=== PATIENT | female | born 1950 | race Caucasian/White ===

== ENCOUNTER 2022-04-13 11:29 | Inpatient (IN) | payer MEDICARE, SELFPAY ==
--- NOTE | ~2022-04-13 | XR_ITS ---
EXAMINATION: XR elbow LT min 3V DATE: 04/13/2022 13:36 INDICATION: Left elbow injury. TECHNIQUE: 4 views of left elbow were obtained. COMPARISON: None. FINDINGS: There is a fracture of lateral humeral condyle posteriorly. There is mild elbow joint osteoarthritis. There is an elbow joint effusion. IMPRESSION: 1. Nondisplaced fracture of lateral humeral condyle posteriorly. 2. Mild elbow joint osteoarthritis. 3. Elbow joint effusion. Reviewed, dictated and finalized at location A.
--- NOTE | ~2022-04-13 | CT_ITS ---
EXAMINATION: CT BRAIN W/O DATE: 04/14/2022 12:10 INDICATION: Status post fall. Trauma to the head. TECHNIQUE: Computed tomography (CT) of the head was performed without intravenous contrast. The dose- length product was 605.33 mGy-cm. Automated exposure control and iterative reconstruction technique w ere employed. COMPARISON: No prior studies for comparison. FINDINGS: Normal brain parenchymal volume for age. Normal borrego-white differentiation. No acute intrac ranial hemorrhage, infarction, mass or mass effect. No ventriculomegaly or midline shift. Midline sagittal images demonstrate a normal corpus callosum, c raniovertebral junction and sella turcica. Basilar cisterns are patent. Paranasal sinuses and mastoids are pneumatized. No depressed skull fractures. IMPRESSION: 1. No acute intracranial abnormality. Reviewed, dictated and finalized at location A.
--- NOTE | ~2022-04-13 | XR_ITS ---
XR hip LT 2V w AP pelvis 04/13/2022 13:37 Indication: Status post fall. Hip pain. Procedure: 4 views left hip. Comparison: No prior studies for comparison. Findings: There is a displaced left femoral neck fracture. Mild osteoarthritis of the hip. No other f ractures. No soft tissue abnormality. Impression: 1: Displaced left femoral neck fracture. Reviewed, dictated and finalized at location B. Impression: 1: Displaced left femoral neck fracture.
--- NOTE | ~2022-04-13 | XR_ITS ---
EXAMINATION: XR chest 1V portable 04/13/2022 13:55 INDICATION: Left hip fracture. PROCEDURE: AP portable chest COMPARISON: No prior studies for comparison. FINDINGS: The lungs are clear. The cardiomediastinal silhouette is within normal limits. There are no pleural effusions. There is no pneumothorax suspected. Borderline heart size. IMPRESSION: 1: NO ACUTE CARDIOPULMONARY DISEASE. Reviewed, dictated and finalized at location B.
--- NOTE | ~2022-04-13 | XR_ITS ---
EXAM: XR hip LT 1V DATE: 04/15/2022 14:56 HISTORY: LEFT TOTAL HIP POST OP . COMPARISON: 04/13/2022. FINDINGS: Interval left total hip arthroplasty, in good position. Gas present within the joint space and surrounding soft tissues. No unexpected radiopaque foreign body. IMPRESSION: Expected intraoperative postsurgical changes, with no radiographic evidence of procedure or hardware related complication. Reviewed, dictated and finalized at location K.
[2022-04-13 11:24] VITALS: BP 149/90; PULSE 99; RESP 18; TEMP 36.7; O2SAT 97
[2022-04-13] MEDS: SODIUM CHLORIDE 0.9% IV 1,000 ML 999 ML IV CONT (12:34)
[2022-04-13] MEDS: MORPHINE SULFATE (*CRX) 4 MG/ML INJ IV PUSH (12:34)
[2022-04-13 12:35] VITALS: PULSE 99; RESP 18; O2SAT 99
[2022-04-13 13:20] LABS: Basophils Percent Auto 0.4 % (0.2-1.2); Eosinophils Percent Auto 0.6 % (0-4.4); Hematocrit 44.1 % (37.0-47.0); Hemoglobin 14.6 g/dL (12.0-15.0); Immature Granulocyte Absolute 0.04 K/mm3 (0.00-0.031); Immature Granulocyte Percent A 0.6 % (0-0.5); Lymphocytes Absolute Auto 0.79 K/mm3 (0.9-3.2); Lymphocytes Percent Auto 11.7 % (18.3-44.2); Mean Corpuscular HGB Conc 33.1 g/dl (32-36); Mean Corpuscular Hemoglobin 30.6 pg (26-34); Mean Corpuscular Volume 92.5 fl (80-100); Mean Platelet Volume 10.3 fl (7.4-10.4); Monocytes Absolute Auto 0.6 K/mm3 (0.1-0.6); Monocytes Percent Auto 9.3 % (2.6-8.5); Neutrophils Absolute Auto 5.2 K/mm3 (1.3-6.7); Neutrophils Percent Auto 77.4 % (45.5-73.1); Platelet Count Result 231 k/mm3 (150-375); Red Blood Count 4.77 M/mm3 (4.2-5.4); Red Cell Distribution Width 13.3 % (11.5-14.5); White Blood Count 6.8 K/mm3 (4.5-10.0)
--- NOTE | 2022-04-13 13:20 | PC.NURSE ---
Pt to XRAY via stretcher at this time.
--- NOTE | 2022-04-13 13:21 | ED.FALL ---
HPI - Fall General Chief Complaint: Fall Stated Complaint: fall, hip injury Time Seen by Provider: 04/13/22 12:01 History of Present Illness HPI Narrative: Patient is a 72-year-old female who presents ER status post fall. Patient was coming down steps at [employer] when she turned and then fell onto her left side. She landed on her hip had sudden onset pain. Unable to stand up or walk. She did strike her head when she fell but she did not lose consciousness. She is on no blood thinners. She also struck her left elbow when she fell. Cannot perform range of motion with the hip but can with her arm. No numbness or tingling. She received pain medication by EMS which improved her discomfort. Pain only worsens if she attempts to move her leg. Related Data Home Medications Medication Instructions Recorded Confirmed atorvastatin 10 mg tablet 10 mg PO HS 04/13/22 04/13/22 bupropion HCl 150 mg 24 hr tablet, 150 mg PO DAILY 04/13/22 04/13/22 extended release calcium carbonate 600 mg calcium 600 mg PO BID 04/13/22 04/13/22 (1,500 mg) tablet dapagliflozin 5 mg tablet (Farxiga) 5 mg PO DAILY 04/13/22 04/13/22 dulaglutide 0.75 mg/0.5 mL 0.75 mg subcut WEEKLY 04/13/22 04/13/22 subcutaneous pen injector ([facility]) duloxetine 30 mg capsule,delayed 30 mg PO DAILY 04/13/22 04/13/22 release meloxicam 7.5 mg tablet 7.5 mg BID 04/13/22 04/13/22 metformin 500 mg tablet 500 mg BID 04/13/22 04/13/22 multivit with 8 tablet PO DAILY 04/13/22 04/13/22 emaxbrlw-ahgg-GF-lutein 8 mg iron-400 mcg-300 mcg tablet (Centrum Silver Women) cbjvildv-nvt-sykhn9 250 mg-dha 90 250 cap PO DAILY 04/13/22 04/13/22 mg-epa 160 bn-ttdz-kvdp-zeax capsule (Ocuvite Adult 50 Plus) trazodone 150 mg tablet 150 mg HS 04/13/22 04/13/22 Allergies Allergy/AdvReac Type Severity Reaction Status Date / Time lactose Allergy Diarrhea Verified 04/13/22 18:49 Review of Systems Review of Systems: All systems reviewed & are unremarkable except as noted in HPI and below Constitutional: Constitutional: Denies chills and Denies fever(s) Cardiovascular: Cardiovascular: Denies chest pain, Denies rapid heart rate and Denies radiating jaw, neck or arm pain Respiratory: Respiratory: Denies cough and Denies dyspnea Gastrointestinal: Gastrointestinal: Denies abdominal pain, Denies diarrhea, Denies nausea and Denies vomiting Musculoskeletal: Musculoskeletal: Denies back pain, Reports arthralgias and Denies joint swelling Neurologic: Denies syncope, Denies headache(s), Denies focal weakness and Denies numbness PMFSH Past Medical History Medical History (Updated 04/13/22 @ 21:48 by Сергей Chu MD) Diabetes Hyperlipidemia Surgical History Surgical History (Updated 04/13/22 @ 13:24 by Сергей Chu MD) History of cholecystectomy History of hysterectomy Social History Social History (Updated 04/13/22 @ 13:24 by Сергей Chu MD) Smoking status: Never smoker Alcohol intake: never Substance use: never Has the Lack of Transportation Kept You From Medical Appointments or From Getting Medications?: No Within the Past 12 Months, Were You Worried Whether Your Food Would Run Out Before You Got Money to Buy More?: Never True What is Your Housing Situation Today?: I Have Housing Are You Worried That in the Next 2 Months, You May Not Have Your Own Housing to Live In?: No Do You Have Trouble Paying Your Heating Or Electricity Bill?: No Do You Have Trouble Paying For Medicines?: No Are You Currently Unemployed and Looking for Work?: No Highest Level of Education Completed: Master's Degree or Higher Do You Have Trouble With Childcare or the Care of a Family Member?: No Spiritual care concerns: No Exam Narrative: GENERAL: Well-appearing, well-nourished, and in no acute distress. HEAD: Normocephalic, atraumatic. EYES: PERRL and EOMI. ENT: Mucous membranes moist. CHEST: Clear to auscultation. No respiratory distres
[2022-04-13 13:26] LABS: Appearance Urine Clear (Clear); Bilirubin Urine Negative (Negative); Blood Urine Negative (Negative); Color Urine Yellow (Yellow); Glucose Urine UA 3+ mg/dL (Negative); Ketones Urine Negative (Negative); Leukocyte Esterase Ur Negative LEU/UL (Negative); Nitrate Urine Negative (Negative); Protein Urine Negative (Negative); Specific Grav Ur 1.015 (1.001-1.035); Urobilinogen Urine 0.2 mg/dL (<2.0)
[2022-04-13 13:29] LABS: Mucus Urine Rare /lpf; RBC Urine 0-2 /hpf (0-2); Squamous Epithelial Cell Urine Rare /hpf (Few); WBC Urine 0-3 /hpf
[2022-04-13 13:30] LABS: Anion Gap 11 mmol/L (8-16); Blood Urea Nitrogen 16 mg/dL (7-17); Calcium 9.4 mg/dL (8.4-10.2); Carbon Dioxide 25 mmol/L (22-30); Chloride 105 mmol/L (98-107); Estimated CRCL calculation 51 ml/min; Estimated Glomerular Filt Rate > 60; Glucose 137 mg/dL (65-110); Potassium 4.3 mmol/L (3.4-5.0); Sodium 141 mmol/L (137-145)
[2022-04-13 13:31] LABS: INR 1.1; Partial Thromboplastin Time 30.8 SECONDS (22.3-36.8); Prothrombin Time 13.7 Seconds (11.1-14.7)
[2022-04-13 13:46] LABS: Add Urine Microscopic? YES
[2022-04-13 14:31] VITALS: BP 147/83; PULSE 77; RESP 15; O2SAT 100
--- NOTE | 2022-04-13 17:06 | PC.NURSE ---
1500 tried contacting via cell - directly to voice mail [phone] directly to voice mail [phone] directly to voice mail [phone] home number not in service [phone] contacted [employer] exchange
[2022-04-13 17:41] VITALS: BP 123/70; PULSE 77; O2SAT 98
[2022-04-13 18:12] LABS: SARS-CoV-2 RNA PCR Negative
[2022-04-13 19:52] VITALS: BMI 29.4
--- NOTE | 2022-04-13 19:52 | PC.NURSE ---
This patient, Deisy Roe, was admitted to [facility] Surg Room 303-01. Patient/family oriented to hospital policies and general routines including ID bracelet, bed and alarms, visiting hours, pain management, procedures, bathroom and other care routines, personal items, smoking policy, room service/diet, and visiting hours. Information on how to activate the Rapid Response Team has been discussed. Patient/Family are encouraged to report perceived risks to care and to ask questions if they do not understand what they are told or what they should do.
[2022-04-13 21:54] VITALS: BP 121/65; PULSE 87; RESP 14; TEMP 37.1; O2SAT 97
--- NOTE | 2022-04-13 23:32 | PM.IMHP ---
H&P: HPI History of Present Illness Date/Time: 04/13/22 23:32 Chief Complaint: Fall Narrative: this is a 72-year-old female patient who was walking down the steps at [employer]. She had gotten to the last step and somebody called her name she turned to look who called her name and then she missed the last step and fell. She landed on her hip and had sudden onset of pain. She was unable to stand up or walk. She stated she did strike her head but did not lose consciousness. She is not on any anticoagulants. She was in severe pain when the EMS came to the scene. They did medicate her and that seemed to relieve some of her discomfort. Her COVID test is negative. Chest x-ray was read as no acute cardiopulmonary disease . Hip and pelvis x-ray shows displaced left femoral neck fracture. Elbow x-ray shows nondisplaced fracture of lateral humeral condyle posteriorly. Mild elbow joint osteoarthritis. Elbow joint effusion. The left arm was placed in a sling. Ortho has been consulted. The patient was given morphine and IV fluids in the emergency room. The patient initially was being admitted for observation and then changed to inpatient admission on the date of service of 04/13/2022. Review of Systems Review of Systems: See HPI All systems reviewed & are unremarkable except as noted in HPI and below Constitutional: Constitutional: Reports as per HPI and Reports no additional constitutional complaints Eyes: Eyes: Reports as per HPI and Reports no additional eye complaints ENT: Reports system reviewed and no additional complaints, except as documented and Reports Normal hearing present Cardiovascular: Cardiovascular: Reports no additional cardiovascular complaints Respiratory: Respiratory: Reports no additional respiratory complaints and Reports no additional respiratory complaints Gastrointestinal: Gastrointestinal: Reports as per HPI and Reports no additional gastrointestinal complaints Musculoskeletal: Musculoskeletal: Reports no additional musculoskeletal complaints Integumentary/Breasts: Skin/Breast: Reports system reviewed and no additional complaints, except as docu and Reports as per HPI Neurologic: Reports system reviewed and no additional complaints, except as documented, Reports as per HPI and Reports Normal hearing present Psychiatric: Psychiatric: Reports no additional psychiatric complaints and Reports as per HPI Endocrine: Endocrine: Reports no additional endocrine complaints Hematologic/Lymphatic: Hematologic/Lymphatic: Reports no additional hematologic/lymphatic complaints Allergic/Immunologic: Allergic/Immunologic: Reports no additional allergic/immunologic complaints [facility] Past Medical History Medical History (Updated 04/13/22 @ 23:39 by Omayra Kruse NP) Cataract Depression with anxiety Diabetes Fatty liver Hyperlipidemia Irritable bowel Surgical History Surgical History (Updated 04/13/22 @ 23:39 by Omayra Kruse NP) History of arthroscopic surgery of shoulder History of cholecystectomy History of hysterectomy S/P ORIF (open reduction internal fixation) fracture right wrist S/P rotator cuff repair Family History Family History (Updated 04/13/22 @ 23:43 by Omayra Kruse NP) Mother Dementia Hypertension Hyperlipidemia Father Lung cancer Sibling Anoxic brain damage Social History Social History (Updated 04/13/22 @ 23:44 by Omayra Kruse NP) Social History: 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 She does not use any alcohol marijuana or illicit drugs. The patient is . Her is a durable power mergers and acquisitions attorney for healthcare. Code status full code Smoking status: Never smoker Alcohol intake: never Substance use: never Has the Lack of Transportation Kept You From Medical Appointments or From Getting Medications?: No Within the Past 12 Months, Were You Worried Whether Your Food Would Run Out Before
[2022-04-14 06:00] VITALS: BP 118/66; PULSE 87; RESP 16; TEMP 36.7; O2SAT 94
[2022-04-14 06:41] LABS: Basophils Percent Auto 0.3 % (0.2-1.2); Eosinophils Absolute Auto 0.2 K/mm3 (0-0.3); Eosinophils Percent Auto 3.4 % (0-4.4); Hematocrit 40.7 % (37.0-47.0); Hemoglobin 13.8 g/dL (12.0-15.0); Immature Granulocyte Absolute 0.05 K/mm3 (0.00-0.031); Immature Granulocyte Percent A 0.7 % (0-0.5); Lymphocytes Absolute Auto 1.07 K/mm3 (0.9-3.2); Lymphocytes Percent Auto 15.3 % (18.3-44.2); Mean Corpuscular HGB Conc 33.9 g/dl (32-36); Mean Corpuscular Hemoglobin 29.9 pg (26-34); Mean Corpuscular Volume 88.1 fl (80-100); Mean Platelet Volume 10.2 fl (7.4-10.4); Monocytes Absolute Auto 0.8 K/mm3 (0.1-0.6); Monocytes Percent Auto 11.3 % (2.6-8.5); Neutrophils Absolute Auto 4.8 K/mm3 (1.3-6.7); Platelet Count Result 209 k/mm3 (150-375); Red Blood Count 4.62 M/mm3 (4.2-5.4); Red Cell Distribution Width 13.4 % (11.5-14.5)
[2022-04-14 07:01] LABS: Alanine Aminotransferase 35 U/L (6-35); Albumin Level 4.2 g/dL (3.5-5.1); Alkaline Phosphatase 100 U/L (38-126); Anion Gap 12 mmol/L (8-16); Aspartate Amino Transferase 34 U/L (14-36); Bilirubin,Total 1.7 mg/dL (0.2-1.3); Blood Urea Nitrogen 13 mg/dL (7-17); Calcium 8.6 mg/dL (8.4-10.2); Carbon Dioxide 24 mmol/L (22-30); Chloride 102 mmol/L (98-107); Estimated CRCL calculation 58 ml/min; Estimated Glomerular Filt Rate > 60; Glucose 117 mg/dL (65-110); Magnesium 2.1 mg/dL (1.6-2.3); Potassium 3.8 mmol/L (3.4-5.0); Sodium 138 mmol/L (137-145)
[2022-04-14 07:46] LABS: Glucose Point of Care 109 mg/dl (65-105)
[2022-04-14 08:00] VITALS: PULSE 87; RESP 16; O2SAT 94
[2022-04-14] MEDS: SODIUM CHLORIDE 0.9% IV 1,000 ML 75 ML IV CONT (08:57)
[2022-04-14] MEDS: MORPHINE SULFATE (*CRX) 4 MG/ML INJ IV PUSH (08:57)
[2022-04-14 09:19] LABS: Hemoglobin A1C 6.4 % (<5.7)
[2022-04-14] MEDS: DULoxetine HCL 30 MG CAPSULE.DR PO (09:20)
[2022-04-14] MEDS: buPROPion HCL XL (24 HR) 150 MG TABCR PO (09:20)
[2022-04-14 11:26] LABS: Glucose Point of Care 109 mg/dl (65-105)
--- NOTE | 2022-04-14 12:29 | PM.IMPN ---
Progress Note: A&P Assessment and Plan (1) Fall: Code(s): W19.XXXA - Unspecified fall, initial encounter Status: Acute Assessment and Plan: Mechanical fall down stairs on 04/13. Someone called the patient's name and she turned around and missed a step. She did hit her head but did not lose consciousness. No prolonged down time Head CT showed no acute findings Fall precautions in place (2) Femoral neck fracture: Qualifiers: Encounter type: initial encounter Laterality: left Code(s): S72.009A - Fracture of unspecified part of neck of unspecified femur, initial encounter for closed fracture Status: Acute Assessment and Plan: Secondary to fall Hip and pelvis x-ray showed displaced left femoral neck fracture Appreciate orthopedic surgery consultation No surgical intervention planned today, will start diabetic diet Supportive care. Analgesics available as needed Will need PT/OT postoperatively (3) Elbow fracture: Qualifiers: Encounter type: initial encounter Laterality: left Code(s): S42.409A - Unspecified fracture of lower end of unspecified humerus, initial encounter for closed fracture Status: Acute Assessment and Plan: Secondary to fall Elbow x-ray showed nondisplaced fracture of left lateral humeral condyle posteriorly Sling placed in ED. Continue Appreciate orthopedic surgery evaluation Analgesics and supportive care (4) Diabetes: Code(s): E11.9 - Type 2 diabetes mellitus without complications Status: Acute Assessment and Plan: A1c is 6.4. Blood sugars have been well controlled today Continue Accu-Cheks, sliding scale insulin, and hypoglycemic protocol Home metformin on hold Continue jardiance (5) Hyperlipidemia: Code(s): E78.5 - Hyperlipidemia, unspecified Status: Acute Assessment and Plan: LFTs stable. Continue atorvastatin Subjective Date/time seen: 04/14/22 12:29 Interval history: Date of service: 04/14/2022 Deisy Roe is a 72 year old female with a history of type 2 diabetes mellitus, hyperlipidemia, depression, anxiety who is seen in follow up for left hip and elbow fracture following a mechanical fall. She is fairly comfortable at this time. This morning her pain was 7-8/10 but after receiving pain medications, she now has no pain. She is comfortable if she is lying still. Any movement causes pain. She has been NPO today and is not had anything to eat or drink. She denies nausea or vomiting. Denies shortness of breath, cough, chest pain, palpitations. States her last bowel movement was 2 days ago. No issues with her Mooney catheter. Review of Systems Review of Systems: All systems reviewed & are unremarkable except as noted in HPI and below Exam Narrative: General: Well-nourished, well-appearing 72-year-old female, supine in bed, comfortable, NARD Neuro: awake, alert and oriented x4, speech clear, no focal neuro deficits noted HEENMT: normocephalic, atraumatic, EOMI, sclerae anicteric Respiratory: clear to auscultation bilaterally, nonlabored breathing Cardio: regular rate, regular rhythm with S1-S2 Abdomen: nondistended, normoactive bowel sounds, soft, nontender to palpation Extremities: Left arm in sling, able to wiggle fingers and make a fist, brisk capillary refill. Left leg is shortened and externally rotated, left hip is tender to palpation, BLE without edema, erythema, or tenderness to palpation, DP pulses 2+ bilaterally, able to wiggle toes bilaterally Skin: Abrasions on left knuckles, no rashes or lesions, warm and dry Psych: appropriate mood and affect, judgment and insight intact Objective Data Vital Signs Vital Signs: Vital Signs - 24 hr 04/13/22 12:35 04/13/22 14:31 04/13/22 17:41 Temperature Pulse Rate 99 77 77 Respiratory Rate 18 15 Blood Pressure 147/83 H 123/70 Pulse Oximetry 99 100 98 Oxygen Del
[2022-04-14 14:00] VITALS: BP 130/71; PULSE 96; RESP 16; TEMP 35.9; O2SAT 92
[2022-04-14] MEDS: MORPHINE SULFATE (*CRX) 2 MG/ML INJ IV PUSH ×2 (14:41→20:38)
[2022-04-14 16:00] VITALS: BP 130/71; PULSE 100; RESP 16; TEMP 36.4; O2SAT 93
--- NOTE | 2022-04-14 16:02 | PM.CNOR ---
Assessment and Plan Assessment and plan (1) Femoral neck fracture: Qualifiers: Encounter type: initial encounter Laterality: left Code(s): S72.009A - Fracture of unspecified part of neck of unspecified femur, initial encounter for closed fracture Status: Acute Assessment and Plan: LUDIN IS HERE FOR EVALUATION OF HER DISPLACED LEFT FEMORAL NECK FRACTURE PER XRAY EVALUATION AND LEFT ELBOW LATERAL CONDYLE FRACTURE WITH MINIMAL DISPLACEMENT PER XRAY EVALUATION. SHE WILL NEED LEFT TOTAL HIP ARTHROPLASTY DUE TO HER AGE AND ACTIVITY LEVEL. WE DISCUSSED ALTERNATIVES TO TOTAL HIP REPLACE WITH A BÁRBARA ARTHROPLASTY. I THINK THIS WILL HAVE AN EARLY FAILURE RATE DUE TO HER AGE AND ACTIVITY LEVEL. FAR HER ELBOW IS CONCERNED, WE MAY BE ABLE TO TREAT HER NONOPERATIVELY DUE TO THE MINIMAL DISPLACEMENT. SHE WILL REQUIRE A PLATFORM WALKER AFTER HER HIP SURGERY. XRAYS WERE REVIEWED WITH THE PATIENT. HISTORY, EXAM AND RADIOGRAPHS REVIEWED WITH THE PATIENT. REFERRING PHYSICIAN RECORDS AND IMAGES REVIEWED. CONDITION, NATURE, ETIOLOGY AND COURSE OF NATURAL HISTORY REVIEWED. CONSERVATIVE AND OPERATIVE TREATMENT OPTIONS REVIEWED WELL THE RISKS AND BENEFITS OF EACH. DISCUSSED NONOPERATIVE AND OPERATIVE TREATMENT OPTIONS WITH THE PATIENT. THE PATIENT'S QUESTIONS WERE ANSWERED. THE PATIENT DESIRES OPERATIVE TREATMENT. DISCUSSED ____LEFT TOTAL HIP REPLACEMENT . RISKS OF SURGERY INCLUDING BUT NOT LIMITED TO NEUROVASCULAR DAMAGE, WOUND COMPLICATIONS, BLOOD CLOT, PULMONARY EMBOLUS, STROKE, LA, ANESTHETIC RISKS UP TO AND INCLUDING WERE REVIEWED. CONTINUED PAIN AND POSSIBLE DYSFUNCTION WERE EXPLAINED. NO GUARANTEES WERE OFFERED. THE PATIENT UNDERSTANDS AND WISHES TO PROCEED. (2) Elbow fracture: Qualifiers: Encounter type: initial encounter Laterality: left Code(s): S42.409A - Unspecified fracture of lower end of unspecified humerus, initial encounter for closed fracture Status: Acute History of Present Illness HPI Consult date: 04/14/22 Chief complaint: Femoral Neck Fracture/Elbow Fracture Narrative: LUDIN FELL ON TO HER LEFT SIDE AND HAS SUSTAINED A DISPLACED LEFT FEMORAL NECKED FRACTURE AND NON DISPLACED LEFT LATERAL HUMERAL CONDYLE FRACTURE. SHE DENIES ANY BACK OR ANY OTHER EXTREMITY PAIN. SHE DENIES ANY LOC OR SOB. SHE DENIES ANY NUMBNESS OR TINGLING IN ANY EXTREMITY. SHE HAS PAIN AND SWELLING IN THE HIP. SHE HAS MILD TO MODERATE PAIN IN THE LEFT ELBOW AND IS ABLE TO COMFRTABLYFLEXT AND EXTEND THE ELBOW WITH SOME DISCOMFORT. 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 She does not use any alcohol marijuana or illicit drugs. The patient is . Her is a durable power high risk ob for healthcare. Code status full code Smoking status: Never smoker Alcohol intake: never Substance use: never Has the Lack of Transportation Kept You From Medical Appointments or From Getting Medications?: No Within the Past 12 Months, Were You Worried Whether Your Food Would Run Out Before You Got Money to Buy More?: Never True What is Your Housing Situation Today?: I Have Housing Are You Worrie
[2022-04-14 16:46] LABS: Glucose Point of Care 120 mg/dl (65-105)
[2022-04-14] MEDS: CALCIUM CARBONATE (OSCAL) 500 MG TABLET PO (17:50)
--- NOTE | 2022-04-14 19:04 | WPDANESEPP ---
Anes - Eval Pre Procedure Procedure: Left AMAYA Date/Time: 04/14/22 19:04 Surgeon: Cristi Preop Diagnosis: Left femoral neck fracture Pre Op Diagnosis: Femoral Neck Fracture/Elbow Fracture Patient Data Age: 72 Gender: F Height: 1.68 m Weight: 82.7 kg Last Vital Signs Temp 97.5 F L 04/14/22 16:00 Pulse 100 04/14/22 16:00 Resp 16 04/14/22 16:00 BP 130/71 04/14/22 16:00 Pulse Ox 93 04/14/22 16:00 O2 Del Method Room Air 04/14/22 08:00 Allergies Allergy/AdvReac Type Severity Reaction Status Date / Time lactose Allergy Diarrhea Verified 04/13/22 18:49 Home Medications Medication Instructions Recorded Confirmed Type atorvastatin 10 mg tablet 10 mg PO HS 04/13/22 04/13/22 History bupropion HCl 150 mg 24 hr tablet, 150 mg PO DAILY 04/13/22 04/13/22 History extended release calcium carbonate 600 mg calcium 600 mg PO BID 04/13/22 04/13/22 History (1,500 mg) tablet dapagliflozin 5 mg tablet (Farxiga) 5 mg PO DAILY 04/13/22 04/13/22 History dulaglutide 0.75 mg/0.5 mL 0.75 mg subcut WEEKLY 04/13/22 04/13/22 History subcutaneous pen injector ([facility]) duloxetine 30 mg capsule,delayed 30 mg PO DAILY 04/13/22 04/13/22 History release meloxicam 7.5 mg tablet 7.5 mg BID 04/13/22 04/13/22 History metformin 500 mg tablet 500 mg BID 04/13/22 04/13/22 History multivit with 8 tablet PO DAILY 04/13/22 04/13/22 History zcgfymsq-hxys-AZ-lutein 8 mg iron-400 mcg-300 mcg tablet (Centrum Silver Women) ggyytuug-pvc-glgec0 250 mg-dha 90 250 cap PO DAILY 04/13/22 04/13/22 History mg-epa 160 lr-tkzn-eftj-zeax capsule (Ocuvite Adult 50 Plus) trazodone 150 mg tablet 150 mg HS 04/13/22 04/13/22 History Laboratory Tests 04/14/22 04/14/22 04/14/22 06:20 06:20 06:20 WBC 7.0 K/mm3 K/mm3 (4.5-10.0) RBC 4.62 M/mm3 M/mm3 (4.2-5.4) Hgb 13.8 g/dL g/dL (12.0-15.0) Hct 40.7 % % (37.0-47.0) MCV 88.1 fl fl (80-100) MCH 29.9 pg pg (26-34) MCHC 33.9 g/dl g/dl (32-36) RDW 13.4 % % (11.5-14.5) Plt Count 209 k/mm3 k/mm3 (150-375) MPV 10.2 fl fl (7.4-10.4) Immature Gran % (Auto) 0.7 % H % (0-0.5) Neut % (Auto) 69.0 % % (45.5-73.1) Lymph % (Auto) 15.3 % L % (18.3-44.2) [place] % (Auto) 11.3 % H % (2.6-8.5) Eos % (Auto) 3.4 % % (0-4.4) Baso % (Auto) 0.3 % % (0.2-1.2) Lymph # (Auto) 1.07 K/mm3 K/mm3 (0.9-3.2) [place] # (Auto) 0.8 K/mm3 H K/mm3 (0.1-0.6) Eos # (Auto) 0.2 K/mm3 K/mm3 (0-0.3) Baso # (Auto) 0.0 K/mm3 K/mm3 (0.0-0.1) Abs Immat Gran (auto) 0.05 K/mm3 H K/mm3 (0.00-0.031) Absolute Neuts (auto) 4.8 K/mm3 K/mm3 (1.3-6.7) Absolute Nucleated RBC 0.0 K/mm3 K/mm3 (0.0-0.012) Nucleated RBC % 0.0 % % (0.0-0.2) Sodium 138 mmol/L mmol/L (137-145) Potassium 3.8 mmol/L mmol/L (3.4-5.0) Chloride 102 mmol/L mmol/L (98-107) Carbon Dioxide 24 mmol/L mmol/L (22-30) Anion Gap 12 mmol/L mmol/L (8-16) BUN 13 mg/dL mg/dL (7-17) Creatinine 0.80 mg/dL mg/dL (0.7-1.0) Estim Creat Clear Calc 58 ml/min ml/min Estimated GFR > 60 (59 - ) Glucose 117 mg/dL H mg/dL (65-110) POC Capillary Glucose Hemoglobin A1c 6.4 % H % (<5.7) Lactic Acid Calcium 8.6 mg/dL mg/dL (8.4-10.2) Magnesium 2.1 mg/dL mg/dL (1.6-2.3) Total Bilirubin 1.7 mg/dL H mg/dL (0.2-1.3) AST 34 U/L U/L (14-36) ALT 35 U/L U/L (6-35) Alkaline Phosphatase 100 U/L U/L (38-126) Total Protein 7.0 g/dL g/dL (6.3-8.2) Albumin 4.2 g/dL g/dL (3.5-5.1) TSH (Reflex) Blood Type Antibody Screen 03/18
[2022-04-14 20:00] VITALS: BP 150/84; PULSE 88; RESP 18; TEMP 36.7; O2SAT 97
[2022-04-14] MEDS: ATORVASTATIN 10 MG TABLET PO (21:13)
[2022-04-14] MEDS: traZODone HCL 50 MG TABLET 150 MG BY MOUTH (21:13)
[2022-04-14 22:43] LABS: Glucose Point of Care 132 mg/dl (65-105)
[2022-04-15] VITALS (14 sets, daily range): BP systolic 88–142; BP diastolic 54–83; PULSE 93–107; RESP 12–20; TEMP 35.8–36.6; O2SAT 94–99
[2022-04-15 06:35] LABS: Basophils Percent Auto 0.3 % (0.2-1.2); Eosinophils Absolute Auto 0.1 K/mm3 (0-0.3); Eosinophils Percent Auto 1.1 % (0-4.4); Hematocrit 44.5 % (37.0-47.0); Hemoglobin 14.7 g/dL (12.0-15.0); Immature Granulocyte Absolute 0.04 K/mm3 (0.00-0.031); Immature Granulocyte Percent A 0.5 % (0-0.5); Lymphocytes Absolute Auto 0.83 K/mm3 (0.9-3.2); Mean Corpuscular Hemoglobin 30.4 pg (26-34); Mean Corpuscular Volume 92.1 fl (80-100); Mean Platelet Volume 10.5 fl (7.4-10.4); Monocytes Absolute Auto 0.7 K/mm3 (0.1-0.6); Monocytes Percent Auto 8.9 % (2.6-8.5); Neutrophils Absolute Auto 5.9 K/mm3 (1.3-6.7); Neutrophils Percent Auto 78.2 % (45.5-73.1); Platelet Count Result 222 k/mm3 (150-375); Red Blood Count 4.83 M/mm3 (4.2-5.4); Red Cell Distribution Width 13.3 % (11.5-14.5); White Blood Count 7.6 K/mm3 (4.5-10.0)
[2022-04-15 06:42] LABS: Alanine Aminotransferase 35 U/L (6-35); Albumin Level 4.4 g/dL (3.5-5.1); Alkaline Phosphatase 114 U/L (38-126); Anion Gap 15 mmol/L (8-16); Aspartate Amino Transferase 32 U/L (14-36); Bilirubin,Total 1.9 mg/dL (0.2-1.3); Blood Urea Nitrogen 15 mg/dL (7-17); Calcium 8.4 mg/dL (8.4-10.2); Carbon Dioxide 20 mmol/L (22-30); Chloride 101 mmol/L (98-107); Estimated CRCL calculation 66 ml/min; Estimated Glomerular Filt Rate > 60; Glucose 114 mg/dL (65-110); Potassium 3.9 mmol/L (3.4-5.0); Sodium 136 mmol/L (137-145)
[2022-04-15 07:34] LABS: Glucose Point of Care 113 mg/dl (65-105)
[2022-04-15] MEDS: buPROPion HCL XL (24 HR) 150 MG TABCR PO (08:16)
[2022-04-15] MEDS: DULoxetine HCL 30 MG CAPSULE.DR PO (08:16)
[2022-04-15] MEDS: MORPHINE SULFATE (*CRX) 2 MG/ML INJ IV PUSH (08:17)
--- NOTE | 2022-04-15 08:31 | ECG_ITS ---
Measurements Intervals [place] Rate: 94 P: 22 NH: 208 QRS: -21 QRSD: 94 T: -3 QT: 355 QTc: 446 Interpretive Statements SINUS RHYTHM INFERIOR MYOCARDIAL INFARCTION , PROBABLY OLD [40+ ms Q WAVE AND/OR ST/T ABNORMALITY IN II/aVF] BASELINE ARTIFACT IS PRESENT NO PREVIOUS ECG AVAILABLE FOR COMPARISON Electronically Signed On 04-15-2022 12:18:09 CDT by Homero Braga M.D.
--- NOTE | 2022-04-15 08:35 | P.PNAN_ITS ---
Anes - Eval Final PreProcedure Day of Procedure 04/15/22 08:35 Patient weight: overweight Heart: regular rate and rhythm Lungs: clear to auscultation and normal air movement Airway: Mallampati scale class II Neurological: alert and oriented Last oral intake: >/= 8 hours ASA classification: III Emergent: yes Anesthetic plan: proceed Anesthesia type and monitoring: general ETT Results Review: All pre-operative results and documents have been reviewed as part of the pre- operative evaluation. Informed Consent: The patient's anesthetic plan and its attendant risks and benefits were discussed with the patient/family/POA. Questions were solicited and answers provided to the satisfaction of the patient/family/POA.
--- NOTE | 2022-04-15 11:23 | PM.IMPN ---
Progress Note: A&P Assessment and Plan (1) Fall: Code(s): W19.XXXA - Unspecified fall, initial encounter Status: Acute Assessment and Plan: Mechanical fall down stairs on 04/13. Someone called the patient's name and she turned around and missed a step. She did hit her head but did not lose consciousness. No prolonged down time Head CT showed no acute findings Fall precautions in place (2) Femoral neck fracture: Qualifiers: Encounter type: initial encounter Laterality: left Code(s): S72.009A - Fracture of unspecified part of neck of unspecified femur, initial encounter for closed fracture Status: Acute Assessment and Plan: Secondary to fall Hip and pelvis x-ray showed displaced left femoral neck fracture Appreciate orthopedic surgery consultation Planning for left total hip arthroplasty today Supportive care. Analgesics available as needed Will need PT/OT postoperatively Postoperative DVT prophylaxis deferred to Orthopedic surgery (3) Elbow fracture: Qualifiers: Encounter type: initial encounter Laterality: left Code(s): S42.409A - Unspecified fracture of lower end of unspecified humerus, initial encounter for closed fracture Status: Acute Assessment and Plan: Secondary to fall Elbow x-ray showed nondisplaced fracture of left lateral humeral condyle posteriorly Sling placed in ED which has been continued Is following orthopedic surgery consultation, patient has elected for conservative management Analgesics and supportive care Begin PT/OT after left hip replacement (4) Diabetes: Code(s): E11.9 - Type 2 diabetes mellitus without complications Status: Acute Assessment and Plan: A1c is 6.4. Blood sugars have been well controlled Continue Accu-Cheks, sliding scale insulin, and hypoglycemic protocol Home metformin on hold Continue jardiance when no longer NPO (5) Hyperlipidemia: Code(s): E78.5 - Hyperlipidemia, unspecified Status: Acute Assessment and Plan: LFTs stable. Continue atorvastatin Subjective Date/time seen: 04/15/22 11:23 Interval history: Date of service: 04/15/2022 Deisy oRe is a 72 year old female with a history of type 2 diabetes mellitus, hyperlipidemia, depression, anxiety who is seen in follow up for left hip and elbow fracture following a mechanical fall. She is doing well today. She has minimal to no hip pain. She denies elbow pain. She was comfortable on throughout the night. This morning she has had headache which she rates as 3/10. She states this feels like the migraines that she used to get. She has pain from her neck up to her right eye. This has improved with Tylenol. No issues with Mooney catheter. States last bowel movement was 3 days ago. No nausea, vomiting, fever, chills. She has been NPO today and is awaiting left hip replacement. Review of Systems Review of Systems: All systems reviewed & are unremarkable except as noted in HPI and below Exam Narrative: General: Well-nourished, well-appearing 72-year-old female, supine in bed, comfortable, NARD Neuro: awake, alert and oriented x4, speech clear, no focal neuro deficits noted HEENMT: normocephalic, atraumatic, EOMI, sclerae anicteric Respiratory: clear to auscultation bilaterally, nonlabored breathing Cardio: regular rate, regular rhythm with S1-S2 Abdomen: nondistended, normoactive bowel sounds, soft, nontender to palpation Extremities: Left arm in sling, able to wiggle fingers and make a fist, brisk capillary refill. Left leg is shortened and externally rotated, left hip is tender to palpation, BLE without edema, erythema, or tenderness to palpation, DP pulses 2+ bilaterally, able to wiggle toes bilaterally Skin: Abrasions on left knuckles and hand, no rashes or lesions, warm and dry Psych: appropriate mood and affect, judgment and insight intact Objective
[2022-04-15 11:25] LABS: Glucose Point of Care 105 mg/dl (65-105)
--- NOTE | 2022-04-15 11:29 | WPDHPUPDATE1 ---
History and Physical Update Update Date/Time: 04/15/22 11:29 History and Physical has been reviewed, including an updated exam of the patient. There are NO changes in the patient's condition. Risks, benefits, and alternatives have been discussed and questions answered. Patient agrees to proceed with procedure.
--- NOTE | 2022-04-15 11:40 | PC.NURSE ---
Pt to pre op per bed. Family awaiting in room and aware of pt transfer.
[2022-04-15] MEDS: LACTATED RINGERS 1,000 ML 30 ML IV CONT ×2 (11:55→14:40)
[2022-04-15] MEDS: ceFAZolin 2 GM/D5W 50 ML 2 GM/50 ML BAG IVPB ×2 (12:01→21:38)
[2022-04-15] MEDS: TRANEXAMIC ACID 1,000 MG/10 ML AMPUL 1000 MG IV PUSH ×2 (12:16→13:49)
--- NOTE | 2022-04-15 14:10 | SUR.OPER ---
andres output 375ml total
--- NOTE | 2022-04-15 14:11 | SUR.OPER ---
urine clear and yellow.
--- NOTE | 2022-04-15 14:54 | W.PM.PROC2 ---
Procedure Note - Detailed Date of Procedure 04/15/22 Pre-op Diagnosis Femoral Neck Fracture Post-op Diagnosis Same Procedure Performed L AMAYA Surgeon Hemal Otero MD Anesthesia General Description of Procedure THE PATIENT WAS TAKEN TO THE OPERATING ROOM IN STABLE CONDITION AND WAS PLACED IN THE LATERAL DECUBITUS AND THE LEFT LOWER EXTREMITY WAS PREPPED AND DRAPED IN THE STERILE FASHION. INCISION WAS MADE IN THE POSTERIOR LATERAL SIDE OF THE HIP, DOWN TO THE FASCIA LAYER. THE FASCIA WAS INCISED. THE HIP WAS EXPOSED. THE SHORT EXTERNAL ROTATORS WERE EXPOSED. THE SCIATIC NERVE WAS IDENTIFIED. INCISION WAS MADE THROUGH THE SHORT EXTERNAL ROTATORS AND THE CAPSULE OF THE HIP JOINT. THERE WAS FRESH HEMATOMA IN THE CAPSULE. THE FEMORAL NECK WAS COMPLETELY FRACTURED. AN OSTEOTOMY WAS MADE TO THE FEMORAL NECK ABOUT 1 CM PROXIMAL TO THE LESSER TROCHANTER. THE FEMORAL HEAD WAS REMOVED AND MEASURED TO 46 MM. THE ACETABULUM WAS EXPOSED. BEGINNING WITH A 44 REAMER THE ACETABULUM WAS REAMED TO 49 MM. A 50 MM TRIAL WAS PLACED IN 35 DEG OF ABDUCTION AND ANTEVERSION WAS IN ALIGNMENT WITH THE TRANS ACETABULAR LIGAMENT. THE FIT WAS EXCELLENT. THE TRIAL WAS REMOVED. A 50 MM BIOMET G7 COMPONENT WAS THEN TAPPED IN TO PLACE IN 35 DEG OF ABDUCTION AND ANTEVERSION IN ALIGNMENT WITH THE TRANSVERSE ACETABULAR LIGAMENT. THE FIT WAS EXCELLENT. THE ACETABULAR LINER WAS PLACED AND CHECKED FOR STABILITY. NEXT THE FEMUR WAS PREPARED WITH INITIAL CANAL FINDER THEN SEQUENTIAL BROACHING WITH A TAPERLOC HIP SYSTEM, UNTIL AN 11 BROACH FIT WELL IN 15 OF ANTEVERSION. A +3 HIGH OFFSET NECK WITH 36 MM HEAD TRIAL WAS PLACED. THE SHUCK TEST WAS EXCELLENT AND THE STABILITY IN FLEXION AND ROTATION WAS EXCELLENT. LEG LENGTHS WERE GROSSLY EQUAL. TRIALS WERE REMOVED. A BIOMET TAPERLOC 11 STEM WAS PLACED WITH A HIGH OFFSET NECK THE FIT WAS EXCELLENT IN 15 DEG OF ANTEVERSION. A +3 CERAMIC 36 MM FEMORAL CERAMIC HEAD WAS PLACED. THE HIP WAS TRIALED AND THE STABILITY WAS EXCELLENT WERE THE LEG LENGTHS AND THE SHUCK TEST. THE WOUND WAS IRRIGATED WITH STERILE BETADINE AND WATER FOR 3 MIN. THEN WASHED AGAIN. THE CAPSULE AND THE EXTERNAL ROTATORS WERE APPROXIMATED WITH NUMBER 1 VICRYL. THE FASCIA WITH No 2 QUIL AND THE SUB CUTANEOUS LAYER WITH 2-0 ABSORBABLE SUTURE WITH A RUNNING 3-0 SUBCUTICULAR LAYER WELL. DERMABOND WAS PLACED AND STERILE DRESSING WAS APPLIED. PATIENT WAS PLACED BACK ON TO THE SUPINE POSITION AND WAS EXTUBATED Estimated Blood Loss -350.0 Urine Output -325.0 Complications No immediate complications Condition Stable Disposition PACU
[2022-04-15 15:04] LABS: Glucose Point of Care 164 mg/dl (65-105)
--- NOTE | 2022-04-15 16:10 | PC.NURSE ---
Pt returned to Unit from PACU. Resting per bed with call light in reach. Family at bedside. Denies need for pain meds. Offers no complaints.
[2022-04-15 16:24] LABS: Glucose Point of Care 181 mg/dl (65-105)
[2022-04-15] MEDS: CALCIUM CARBONATE (OSCAL) 500 MG TABLET PO (17:34)
[2022-04-15] MEDS: metFORMIN HCL 500 MG TABLET BY MOUTH (17:34)
[2022-04-15] MEDS: SODIUM CHLORIDE 0.9% IV 1,000 ML 125 ML IV CONT (17:34)
[2022-04-15] MEDS: SENNA/DOCUSATE SODIUM TABLET 2 TAB PO (17:34)
[2022-04-15] MEDS: ASPIRIN 325 MG ENTERIC TABLET PO (21:41)
[2022-04-15] MEDS: traZODone HCL 50 MG TABLET 150 MG BY MOUTH (21:41)
[2022-04-15] MEDS: ATORVASTATIN 10 MG TABLET PO (21:41)
[2022-04-16] VITALS: BP 125/62; PULSE 105; RESP 20; TEMP 36.9; O2SAT 95
[2022-04-16 04:00] VITALS: BP 115/61; PULSE 102; RESP 20; TEMP 36.7; O2SAT 94
[2022-04-16 04:12] LABS: Glucose Point of Care 193 mg/dl (65-105)
[2022-04-16] MEDS: ceFAZolin 2 GM/D5W 50 ML 2 GM/50 ML BAG IVPB ×2 (04:15→12:55)
[2022-04-16 07:46] LABS: Basophils Percent Auto 0.2 % (0.2-1.2); Hematocrit 36.2 % (37.0-47.0); Hemoglobin 12.1 g/dL (12.0-15.0); Immature Granulocyte Absolute 0.07 K/mm3 (0.00-0.031); Immature Granulocyte Percent A 0.5 % (0-0.5); Lymphocytes Absolute Auto 0.77 K/mm3 (0.9-3.2); Lymphocytes Percent Auto 5.7 % (18.3-44.2); Mean Corpuscular HGB Conc 33.4 g/dl (32-36); Mean Corpuscular Hemoglobin 30.6 pg (26-34); Mean Corpuscular Volume 91.4 fl (80-100); Mean Platelet Volume 10.6 fl (7.4-10.4); Monocytes Absolute Auto 1.4 K/mm3 (0.1-0.6); Monocytes Percent Auto 10.6 % (2.6-8.5); Neutrophils Absolute Auto 11.2 K/mm3 (1.3-6.7); Platelet Count Result 244 k/mm3 (150-375); Red Blood Count 3.96 M/mm3 (4.2-5.4); Red Cell Distribution Width 13.2 % (11.5-14.5); White Blood Count 13.6 K/mm3 (4.5-10.0)
[2022-04-16 07:54] LABS: Glucose Point of Care 194 mg/dl (65-105)
[2022-04-16 07:54] LABS: Alanine Aminotransferase 40 U/L (6-35); Albumin Level 3.7 g/dL (3.5-5.1); Alkaline Phosphatase 120 U/L (38-126); Anion Gap 10 mmol/L (8-16); Aspartate Amino Transferase 50 U/L (14-36); Blood Urea Nitrogen 18 mg/dL (7-17); Calcium 8.4 mg/dL (8.4-10.2); Carbon Dioxide 22 mmol/L (22-30); Chloride 103 mmol/L (98-107); Estimated CRCL calculation 58 ml/min; Estimated Glomerular Filt Rate > 60; Glucose 174 mg/dL (65-110); Potassium 4.3 mmol/L (3.4-5.0); Sodium 135 mmol/L (137-145)
[2022-04-16] MEDS: DULoxetine HCL 30 MG CAPSULE.DR PO (09:02)
[2022-04-16] MEDS: EMPAGLIFLOZIN 10 MG TABLET BY MOUTH (09:02)
[2022-04-16] MEDS: CELECOXIB 200 MG CAPSULE PO (09:02)
[2022-04-16] MEDS: SENNA/DOCUSATE SODIUM TABLET 2 TAB PO ×2 (09:02→17:50)
[2022-04-16] MEDS: metFORMIN HCL 500 MG TABLET BY MOUTH ×2 (09:02→17:50)
[2022-04-16] MEDS: ASPIRIN 325 MG ENTERIC TABLET PO ×2 (09:02→21:24)
[2022-04-16] MEDS: polyethylene glycoL 3350 17 GM POWD.PACK PO (09:02)
[2022-04-16] MEDS: buPROPion HCL XL (24 HR) 150 MG TABCR PO (09:02)
[2022-04-16] MEDS: CALCIUM CARBONATE (OSCAL) 500 MG TABLET PO ×2 (09:02→17:50)
[2022-04-16] MEDS: HYDROcodone/acetaminophen (*CRX) 5-325 MG TABLET 1 TAB PO (10:09)
[2022-04-16 11:25] LABS: Glucose Point of Care 246 mg/dl (65-105)
[2022-04-16] MEDS: INSULIN ASPART (*BKC) 100 UNITS/ML SUB-Q (12:55)
[2022-04-16 13:48] VITALS: BP 98/68; PULSE 106; RESP 20; TEMP 35.8; O2SAT 99
--- NOTE | 2022-04-16 14:30 | WPDANESPN ---
Anes - Prog Note Post-Op Date/Time: 04/16/22 14:30 Cardiovascular status: normal Respiratory status: normal Airway patency: baseline Mental status: baseline Post-Op hydration status: normal Vital Signs: Last Vital Signs Temp 36.7 C 04/16/22 04:00 Pulse 102 H 04/16/22 04:00 Resp 20 04/16/22 04:00 BP 115/61 04/16/22 04:00 Pulse Ox 94 04/16/22 04:00 O2 Del Method Room Air 04/16/22 09:31 O2 Flow Rate 8 04/15/22 15:00 Pain Score (VAS): 2 I/O: Intake & Output 04/15/22 04/16/22 04/16/22 23:59 07:59 15:59 Intake Total 1340 700 480 Output Total 900 950 Balance 440 -250 480 Laboratory Tests 04/16/22 06:52 04/16/22 06:52 04/15/22 04/15/22 04/15/22 15:00 16:21 21:46 WBC RBC Hgb Hct MCV MCH MCHC RDW Plt Count MPV Immature Gran % (Auto) Neut % (Auto) Lymph % (Auto) [place] % (Auto) Eos % (Auto) Baso % (Auto) Lymph # (Auto) [place] # (Auto) Eos # (Auto) Baso # (Auto) Abs Immat Gran (auto) Absolute Neuts (auto) Absolute Nucleated RBC Nucleated RBC % Sodium Potassium Chloride Carbon Dioxide Anion Gap BUN Creatinine Estim Creat Clear Calc Estimated GFR Glucose POC Capillary Glucose 164 H 181 H 193 H Calcium Total Bilirubin Direct Bilirubin AST ALT Alkaline Phosphatase Total Protein Albumin 04/16/22 04/16/22 04/16/22 06:52 06:52 07:42 WBC 13.6 H RBC 3.96 L Hgb 12.1 Hct 36.2 L MCV 91.4 MCH 30.6 MCHC 33.4 RDW 13.2 Plt Count 244 MPV 10.6 H Immature Gran % (Auto) 0.5 Neut % (Auto) 83.0 H Lymph % (Auto) 5.7 L [place] % (Auto) 10.6 H Eos % (Auto) 0.0 Baso % (Auto) 0.2 Lymph # (Auto) 0.77 L [place] # (Auto) 1.4 H Eos # (Auto) 0.0 Baso # (Auto) 0.0 Abs Immat Gran (auto) 0.07 H Absolute Neuts (auto) 11.2 H Absolute Nucleated RBC 0.0 Nucleated RBC % 0.0 Sodium 135 L Potassium 4.3 Chloride 103 Carbon Dioxide 22 Anion Gap 10 BUN 18 H Creatinine 0.80 Estim Creat Clear Calc 58 Estimated GFR > 60 Glucose 174 H POC Capillary Glucose 194 H Calcium 8.4 Total Bilirubin 1.0 Direct Bilirubin 0.0 AST 50 H ALT 40 H Alkaline Phosphatase 120 Total Protein 6.0 L Albumin 3.7 04/16/22 11:11 WBC RBC Hgb Hct MCV MCH MCHC RDW Plt Count MPV Immature Gran % (Auto) Neut % (Auto) Lymph % (Auto) [place] % (Auto) Eos % (Auto) Baso % (Auto) Lymph # (Auto) [place] # (Auto) Eos # (Auto) Baso # (Auto) Abs Immat Gran (auto) Absolute Neuts (auto) Absolute Nucleated RBC Nucleated RBC % Sodium Potassium Chloride Carbon Dioxide Anion Gap BUN Creatinine Estim Creat Clear Calc Estimated GFR Glucose POC Capillary Glucose 246 H Calcium Total Bilirubin Direct Bilirubin AST ALT Alkaline Phosphatase Total Protein Albumin Post-procedural complaints: none Patient Feedback: Patient satisfied with anesthetic care. pt in bed, denies any problems with anesthesia.
--- NOTE | 2022-04-16 14:33 | PM.IMPN ---
Progress Note: A&P Assessment and Plan (1) Fall: Code(s): W19.XXXA - Unspecified fall, initial encounter Status: Acute Assessment and Plan: Mechanical fall down stairs on 04/13. Someone called the patient's name and she turned around and missed a step. She did hit her head but did not lose consciousness. No prolonged down time Head CT showed no acute findings Fall precautions in place (2) Femoral neck fracture: Qualifiers: Encounter type: initial encounter Laterality: left Code(s): S72.009A - Fracture of unspecified part of neck of unspecified femur, initial encounter for closed fracture Status: Acute Assessment and Plan: Secondary to fall Hip and pelvis x-ray showed displaced left femoral neck fracture Appreciate orthopedic surgery consultation Underwent left total hip arthroplasty on 04/15/2022. She tolerated the procedure well Supportive care. Analgesics available as needed Appreciate PT/OT eval Postoperative DVT prophylaxis deferred to Orthopedic surgery She will need continued therapy following discharge. She is being screened for [facility] and SNF Will check vitamin D levels with AM labs (3) Elbow fracture: Qualifiers: Encounter type: initial encounter Laterality: left Code(s): S42.409A - Unspecified fracture of lower end of unspecified humerus, initial encounter for closed fracture Status: Acute Assessment and Plan: Secondary to fall Elbow x-ray showed nondisplaced fracture of left lateral humeral condyle posteriorly Sling placed in ED which has been continued Following orthopedic surgery consultation, patient has elected for conservative management Analgesics and supportive care PT/OT as above (4) Diabetes: Code(s): E11.9 - Type 2 diabetes mellitus without complications Status: Acute Assessment and Plan: A1c is 6.4. Continue Accu-Cheks, sliding scale insulin, and hypoglycemic protocol Home metformin on hold Continue jardiance when no longer NPO (5) Hyperlipidemia: Code(s): E78.5 - Hyperlipidemia, unspecified Status: Acute Assessment and Plan: LFTs stable. Continue atorvastatin Subjective Date/time seen: 04/16/22 14:33 Interval history: Date of service: 04/15/2022 Deisy Roe is a 72 year old female with a history of type 2 diabetes mellitus, hyperlipidemia, depression, anxiety who is seen in follow up for left hip and elbow fracture following a mechanical fall. She is now s/p left total hip arthroplasty. She tolerated the procedure well. She has no hip pain at this time. She rates her elbow pain is 3/10. She had a bowel movement yesterday. She is passing flatus. She denies urinary symptoms. Denies shortness breath, cough, or chest pain. Appetite is good. Review of Systems Review of Systems: All systems reviewed & are unremarkable except as noted in HPI and below Exam Narrative: General: Well-nourished, well-appearing 72-year-old female, supine in bed, comfortable, NARD Neuro: awake, alert and oriented x4, speech clear, no focal neuro deficits noted HEENMT: normocephalic, atraumatic, EOMI, sclerae anicteric Respiratory: clear to auscultation bilaterally, nonlabored breathing Cardio: regular rate, regular rhythm with S1-S2 Abdomen: nondistended, normoactive bowel sounds, soft, nontender to palpation Extremities: Left arm in sling, able to wiggle fingers and make a fist, brisk capillary refill. Left hip incision covered with dressing that is clean and dry, BLE without edema, erythema, or tenderness to palpation, DP pulses 2+ bilaterally, able to wiggle toes bilaterally Skin: Abrasions on left knuckles and hand, no rashes or lesions, warm and dry Psych: appropriate mood and affect, judgment and insight intact Objective Data Vital Signs Vital Signs: Vital Signs - 24 hr 04/15/22 14:40 04/15/22 14:50 04/15/22 15:00
--- NOTE | 2022-04-16 15:40 | PM.PNORT ---
Progress Note: A&P Assessment and Plan (1) Femoral neck fracture: Qualifiers: Encounter type: initial encounter Laterality: left Code(s): S72.009A - Fracture of unspecified part of neck of unspecified femur, initial encounter for closed fracture Status: Acute Assessment and Plan: POD LEFT AMAYA DOING WELL. SHE WILL NEED A HINGED ELBOW BRACE. SHE CAN USE A PLATFORM WALKER. SHE WILL REQUIRE REHAB VS SNF. CONTINUE PT (2) Elbow fracture: Qualifiers: Encounter type: initial encounter Laterality: left Code(s): S42.409A - Unspecified fracture of lower end of unspecified humerus, initial encounter for closed fracture Status: Acute Subjective Subjective Date/Time Seen: 04/16/22 15:40 POD 1 DOING WELL WITH PT. SHE HAS NO CALF PAIN. Exam Extrem: Other: VSS AFEBRILE DRESSING DRY NV INTACT NEG HOMANS SIGN, CALF SOFT Objective Data Vital Signs Vital Signs: Vital Signs - 24 hr 04/15/22 15:45 04/15/22 15:50 04/15/22 15:55 Temperature 36.6 C Pulse Rate 93 97 95 Respiratory Rate 14 14 16 Blood Pressure 98/62 L 103/63 101/65 Pulse Oximetry 94 95 96 Oxygen Delivery Room Air Room Air Room Air 04/15/22 16:18 04/15/22 20:00 04/15/22 21:40 Temperature 35.8 C L 36.4 C Pulse Rate 106 H 107 H Respiratory Rate 16 20 Blood Pressure 105/63 118/68 Pulse Oximetry 96 94 Oxygen Delivery Room Air 04/16/22 00:00 04/16/22 04:00 04/16/22 09:31 Temperature 36.9 C 36.7 C Pulse Rate 105 H 102 H Respiratory Rate 20 20 Blood Pressure 125/62 115/61 Pulse Oximetry 95 94 Oxygen Delivery Room Air 04/16/22 08:00 04/16/22 13:48 Temperature 35.8 C L Pulse Rate 106 H Respiratory Rate 20 Blood Pressure 98/68 L Pulse Oximetry 99 Oxygen Delivery Room Air Intake/Output Intake/Output: Intake & Output 04/13/22 04/14/22 04/15/22 04/16/22 23:59 23:59 23:59 23:59 Intake Total 1000 1280 1640 1180 Output Total 3250 1600 950 Balance 999 -1969 40 230 Meds/Results Medications: Active Medications Generic Name Dose Route Start Last Admin Trade Name Freq PRN Reason Stop Dose Admin Acetaminophen 650 mg 04/14/22 12:50 Acetaminophen 325 Mg Tablet PO Q6H PRN Pain 1-3 Hydrocodone Bitart/Acetaminophen 1 tab 04/14/22 12:50 04/16/22 10:09 Hydrocodone/Acetaminophen (*Crx) 5-325 Mg Tablet PO 1 tab Q6H PRN Administration Pain Rated 4-6 Aspirin 325 mg 04/15/22 21:00 04/16/22 09:02 Aspirin 325 Mg Enteric Tablet PO 325 mg Q12HR MARGOTH Administration Atorvastatin Calcium 10 mg 04/14/22 21:00 04/15/22 21:41 Atorvastatin 10 Mg Tablet PO 10 mg HS MARGOTH Administration Bupropion HCl 150 mg 04/14/22 09:00 04/16/22 09:02 Bupropion Hcl Xl (24 Hr) 150 Mg Tabcr PO 150 mg DAILY MARGOTH Administration Calcium Carbonate 500 mg 04/14/22 09:00 04/16/22 09:02 Calcium Carbonate (Oscal) 500 Mg Tablet PO 05/14/22 08:59 500 mg BID MARGOTH Administration Celecoxib 200 mg 04/16/22 09:00 04/16/22 09:02 Celecoxib 200 Mg Capsule PO 200 mg DAILY MARGOTH Administration Dextrose 12.5 gm 04/13/22 23:49 Dextrose 50% 25 Gm/50 Ml Syringe IV PUSH PRN PRN Hypoglycemia Protocol Diazepam 5 mg 04/15/22 16:03 Diazepam (*Crx) 5 Mg Tablet PO Q6H PRN Anxiety/Muscle Spasm Duloxetine HCl 30 mg 04/14/22 09:00 04/16/22 09:02 Duloxetine Hcl 30 Mg Capsule.Dr PO 30 mg DAILY MARGOTH Administration Empagliflozin 10 mg 04/14/22 09:00 04/16/22 09:02 Empagliflozin 10 Mg Tablet BY MOUTH 10 mg DAILY MARGOTH Administration Glucagon 1 mg 04/13/22 23:49 Glucagon For Inj 1 Mg Vial IM PRN PRN Hypoglycemia Protocol Glucose 15 gm 04/13/22 23:49 Glucose Oral Gel 15 Gm Of Glucse In 37.5 Gm Tube PO PRN PRN Hypoglycemia Protocol Hydroxyzine HCl 50 mg 04/15/22 16:03 Hydroxyzine Hcl 25 Mg Tablet PO Q4H PRN Itching Dextrose 1,000 mls
[2022-04-16 16:37] LABS: Glucose Point of Care 175 mg/dl (65-105)
[2022-04-16 20:00] VITALS: BP 112/65; PULSE 107; RESP 18; TEMP 36.4; O2SAT 93
[2022-04-16 20:46] VITALS: O2SAT 95
[2022-04-16] MEDS: traZODone HCL 50 MG TABLET 150 MG BY MOUTH (21:24)
[2022-04-16] MEDS: ATORVASTATIN 10 MG TABLET PO (21:27)
[2022-04-16 22:21] LABS: Glucose Point of Care 177 mg/dl (65-105)
[2022-04-17] VITALS: BP 93/47; PULSE 113; RESP 20; TEMP 36.5; O2SAT 92
--- NOTE | 2022-04-17 01:41 | PC.NURSE ---
Addendum entered by Nilam Carroll RN 04/17/22 01:43: Lab was unable to successfully get blood from pt. Pharmacy notified that vanc trough was not done. Lab stated that they were going to re-time trough and to go ahead and give scheduled vanc. Original Note: Pt is resting in bed. Pt states she is having no pain at this time. Pt verbalizes that she has no needs at this time. Pt participated and contributed in plan of care. Will continue to monitor pt.
[2022-04-17 04:00] VITALS: BP 132/64; PULSE 104; RESP 20; TEMP 36.6; O2SAT 92
[2022-04-17 07:00] LABS: Hematocrit 35.3 % (37.0-47.0); Hemoglobin 11.7 g/dL (12.0-15.0); Mean Corpuscular HGB Conc 33.1 g/dl (32-36); Mean Corpuscular Hemoglobin 30.5 pg (26-34); Mean Corpuscular Volume 92.2 fl (80-100); Mean Platelet Volume 10.7 fl (7.4-10.4); Platelet Count Result 218 k/mm3 (150-375); Red Blood Count 3.83 M/mm3 (4.2-5.4); Red Cell Distribution Width 13.5 % (11.5-14.5); White Blood Count 8.9 K/mm3 (4.5-10.0)
[2022-04-17 07:07] LABS: Anion Gap 13 mmol/L (8-16); Blood Urea Nitrogen 22 mg/dL (7-17); Calcium 8.8 mg/dL (8.4-10.2); Carbon Dioxide 22 mmol/L (22-30); Chloride 100 mmol/L (98-107); Estimated CRCL calculation 58 ml/min; Estimated Glomerular Filt Rate > 60; Glucose 151 mg/dL (65-110); Potassium 4.1 mmol/L (3.4-5.0); Sodium 135 mmol/L (137-145)
[2022-04-17] MEDS: buPROPion HCL XL (24 HR) 150 MG TABCR PO (08:54)
[2022-04-17] MEDS: CELECOXIB 200 MG CAPSULE PO (08:54)
[2022-04-17] MEDS: metFORMIN HCL 500 MG TABLET BY MOUTH ×2 (08:54→17:18)
[2022-04-17] MEDS: DULoxetine HCL 30 MG CAPSULE.DR PO (08:55)
[2022-04-17] MEDS: SENNA/DOCUSATE SODIUM TABLET 2 TAB PO ×2 (08:55→17:17)
[2022-04-17] MEDS: EMPAGLIFLOZIN 10 MG TABLET BY MOUTH (08:55)
[2022-04-17] MEDS: ASPIRIN 325 MG ENTERIC TABLET PO ×2 (08:55→20:58)
[2022-04-17] MEDS: CALCIUM CARBONATE (OSCAL) 500 MG TABLET PO ×2 (08:55→17:17)
[2022-04-17] MEDS: polyethylene glycoL 3350 17 GM POWD.PACK PO (09:00)
[2022-04-17 09:04] LABS: Glucose Point of Care 142 mg/dl (65-105)
--- NOTE | 2022-04-17 09:46 | PM.PNORT ---
Progress Note: A&P Assessment and Plan (1) Femoral neck fracture: Qualifiers: Encounter type: initial encounter Laterality: left Fracture type: closed Qualified Code(s): S72.002A - Fracture of unspecified part of neck of left femur, initial encounter for closed fracture Code(s): S72.009A - Fracture of unspecified part of neck of unspecified femur, initial encounter for closed fracture Status: Acute Assessment and Plan: POD #1 : Left AMAYA Continue PT/OT. WBAT. Walker. HIGH FALL RISK. Continue pain control. Ice Hip. Protect skin. DVT prophylaxis with Aspirin. SCDs. Incentive Spirometry Use reviewed. Monitor Dressing. Change prior to discharge. Bowel Regimen. Dispo: SNF vs [facility] pending progress with PT/OT (2) Elbow fracture: Qualifiers: Encounter type: initial encounter Laterality: left Code(s): S42.409A - Unspecified fracture of lower end of unspecified humerus, initial encounter for closed fracture Status: Acute Assessment and Plan: NWHaleigh LUE. Sling. Needs Hinged Elbow Brace per Dr. Otero. Okay to use platform walker. Subjective Subjective Date/Time Seen: 04/17/22 09:46 Post Op day: 2 Principal diagnosis: Left AMAYA s/p Fracture & Elbow Fx Interval history: Patient doing well. Working well with PT/OT. No new concerns. Plan for d/c to rehab today. Review of Systems Review of Systems: All systems reviewed & are unremarkable except as noted in HPI and below (HPI ) Exam Const: General: comfortable and no acute distress Orientation/consciousness: patient oriented x3 Limitations: no limitations Resp: Effort & Inspection: normal respiratory effort Cardio: Rate: regular rate Rhythm: regular rhythm GI: Inspection: non-distended Skin: General skin exam: normal color and wounds noted (incision left hip C/D/I ) Wounds: wounds noted (incision left hip C/D/I ) Neuro: General: patient oriented x3 Extrem: Left upper extremity: elbow/forearm tenderness (entire elbow ) and swelling (elbow ), wrist normal to inspection and radial pulse present 2+ and hand neurosensory exam normal Details: radial nerve sensory function normal, ulnar nerve sensory function normal, median nerve sensory function normal and digital nerve sensory function normal, normal ROM of fingers and no swelling; no tenderness, no unusual warmth, no swelling, no ecchymosis and no crepitus Left lower extremity: hip/thigh Details: tenderness Location: of the hip Location: laterally and anteriorly, swelling (thigh soft ) Location: of the hip (lateral. ), abnormal ROM (limitations with internal/external rotation and flexion/extension due to recent surgical intervention ) and other (incision lateral hip c/d/i. ), knee Details: normal to inspection and normal ROM; no tenderness and no swelling, lower leg (Negative Samantha's Sign ) Details: no edema, ankle (+ankle dorsiflexion/plantarflexion ) Details: normal to inspection, no edema and normal ROM; no tenderness, no swelling and no warmth and foot Details: normal capillary refill, toes with normal ROM, vascular exam Details: dorsalis pedis pulse present and motor-sensory exam light-touch normal in all toes; no tenderness, no ecchymosis and no crepitus Psych: Mental Status: mental status grossly normal Affect: normal affect Objective Data Vital Signs Vital Signs: Vital Signs - 24 hr 04/16/22 13:48 04/16/22 20:00 04/16/22 21:35 Temperature 35.8 C L 36.4 C L Pulse Rate 106 H 107 H Respiratory Rate 20 18 Blood Pressure 98/68 L 112/65 Pulse Oximetry 99 93 Oxygen Delivery Room Air 04/16/22 20:46 04/17/22 00:00 04/17/22 04:00 Temperature 36.5 C 36.6 C Pulse Rate 113 H 104 H Respiratory Rate 20 20 Blood Pressure 93/47 L 132/64 Pulse Oximetry 95 92 92 Oxygen Delivery Room Air Intake/Output Intake/Output: Intake & Output 04/14/22 04/15/22 04/16/22 04/17/22 23:59 23:59 23:59 23:59 Intake Total 1280 1640 2620 500 Output Total
[2022-04-17 11:33] LABS: Glucose Point of Care 218 mg/dl (65-105)
[2022-04-17] MEDS: INSULIN ASPART (*BKC) 100 UNITS/ML SUB-Q (13:29)
--- NOTE | 2022-04-17 14:04 | PM.IMPN ---
Progress Note: A&P Assessment and Plan (1) Fall: Code(s): W19.XXXA - Unspecified fall, initial encounter Status: Acute Assessment and Plan: Mechanical fall down stairs on 04/13. Someone called the patient's name and she turned around and missed a step. She did hit her head but did not lose consciousness. No prolonged down time Head CT showed no acute findings Fall precautions in place (2) Femoral neck fracture: Qualifiers: Encounter type: initial encounter Fracture type: closed Laterality: left Qualified Code(s): S72.002A - Fracture of unspecified part of neck of left femur, initial encounter for closed fracture Code(s): S72.009A - Fracture of unspecified part of neck of unspecified femur, initial encounter for closed fracture Status: Acute Assessment and Plan: Secondary to fall Hip and pelvis x-ray showed displaced left femoral neck fracture Vitamin-D levels are sufficient. Appreciate orthopedic surgery consultation Underwent left total hip arthroplasty on 04/15/2022. She tolerated the procedure well Supportive care. Analgesics available as needed Appreciate PT/OT eval Continue aspirin 325 mg q.12 for DVT prophylaxis per Orthopedic surgery She will need continued therapy following discharge. Has been accepted to [facility], awaiting insurance authorization. Also considering SNF pending availability (3) Elbow fracture: Qualifiers: Encounter type: initial encounter Laterality: left Code(s): S42.409A - Unspecified fracture of lower end of unspecified humerus, initial encounter for closed fracture Status: Acute Assessment and Plan: Secondary to fall Elbow x-ray showed nondisplaced fracture of left lateral humeral condyle posteriorly Following orthopedic surgery consultation, patient has elected for conservative management Sling placed in ED which has been continued. Hinged elbow brace has been ordered per Orthopedic surgery. Will take 2-3 days for [employer] to fit for brace Analgesics and supportive care PT/OT as above. Continue with platform walker (4) Diabetes: Code(s): E11.9 - Type 2 diabetes mellitus without complications Status: Acute Assessment and Plan: A1c is 6.4. Continue Accu-Cheks, sliding scale insulin, and hypoglycemic protocol Home metformin on hold Continue jardiance (5) Hyperlipidemia: Code(s): E78.5 - Hyperlipidemia, unspecified Status: Acute Assessment and Plan: LFTs stable. Continue atorvastatin Subjective Date/time seen: 04/17/22 14:04 Interval history: Date of service: 04/17/2022 Deisy Roe is a 72 year old female with a history of type 2 diabetes mellitus, hyperlipidemia, depression, anxiety who is seen in follow up for left hip and elbow fracture following a mechanical fall. She is now s/p left total hip arthroplasty. she is doing well today. Her pain is well controlled. She currently rates her pain as 2/10. She has been very comfortable for the most part and only has discomfort when she is up and moving. She went for walk in the halls today and did well with this. She had a bowel movement today. She denies any urinary symptoms. Denies shortness breath, cough, or chest pain. She has no elbow pain. No additional concerns. Review of Systems Review of Systems: All systems reviewed & are unremarkable except as noted in HPI and below Exam Narrative: General: Well-nourished, well-appearing 72-year-old female, Sitting up in a chair, comfortable, NARD Neuro: awake, alert and oriented x4, speech clear, no focal neuro deficits noted HEENMT: normocephalic, atraumatic, EOMI, sclerae anicteric Respiratory: clear to auscultation bilaterally, nonlabored breathing Cardio: regular rate, regular rhythm with S1-S2 Abdomen: nondistended, normoactive bowel sounds, soft, nontender to palpation Extremities: Left arm in sling, able t
[2022-04-17 16:41] LABS: Glucose Point of Care 126 mg/dl (65-105)
[2022-04-17 20:00] VITALS: BP 116/69; PULSE 106; RESP 20; TEMP 36.9; O2SAT 98
[2022-04-17] MEDS: traZODone HCL 50 MG TABLET 150 MG BY MOUTH (20:58)
[2022-04-17] MEDS: HYDROcodone/acetaminophen (*CRX) 5-325 MG TABLET 1 TAB PO (20:58)
[2022-04-17] MEDS: ATORVASTATIN 10 MG TABLET PO (20:58)
[2022-04-17 22:33] LABS: Glucose Point of Care 184 mg/dl (65-105)
--- NOTE | 2022-04-18 00:08 | PC.NURSE ---
Pt states that she had pain in her hip that we treated with norco. Pt ambulated to the bathroom with walker and 1 assist. Pt is now resting comfortably. Pt has no other needs at this time. Pt participated and contributed in plan of care. Will continue to monitor pt.
[2022-04-18 05:48] VITALS: BP 121/77; PULSE 97; RESP 20; TEMP 36.9; O2SAT 95
[2022-04-18 06:46] LABS: Hematocrit 33.3 % (37.0-47.0); Mean Corpuscular Volume 90.7 fl (80-100); Mean Platelet Volume 10.6 fl (7.4-10.4); Platelet Count Result 240 k/mm3 (150-375); Red Blood Count 3.67 M/mm3 (4.2-5.4); Red Cell Distribution Width 13.4 % (11.5-14.5); White Blood Count 9.2 K/mm3 (4.5-10.0)
[2022-04-18 06:54] LABS: Anion Gap 15 mmol/L (8-16); Blood Urea Nitrogen 19 mg/dL (7-17); Calcium 8.5 mg/dL (8.4-10.2); Carbon Dioxide 24 mmol/L (22-30); Chloride 99 mmol/L (98-107); Estimated CRCL calculation 58 ml/min; Estimated Glomerular Filt Rate > 60; Glucose 122 mg/dL (65-110); Potassium 4.1 mmol/L (3.4-5.0); Sodium 138 mmol/L (137-145)
[2022-04-18 08:27] LABS: Glucose Point of Care 124 mg/dl (65-105)
[2022-04-18] MEDS: CELECOXIB 200 MG CAPSULE PO (09:26)
[2022-04-18] MEDS: CALCIUM CARBONATE (OSCAL) 500 MG TABLET PO ×2 (09:26→17:51)
[2022-04-18] MEDS: metFORMIN HCL 500 MG TABLET BY MOUTH ×2 (09:26→17:51)
[2022-04-18] MEDS: SENNA/DOCUSATE SODIUM TABLET 2 TAB PO ×2 (09:27→17:50)
[2022-04-18] MEDS: ASPIRIN 325 MG ENTERIC TABLET PO ×2 (09:27→21:08)
[2022-04-18] MEDS: buPROPion HCL XL (24 HR) 150 MG TABCR PO (09:27)
[2022-04-18] MEDS: DULoxetine HCL 30 MG CAPSULE.DR PO (09:27)
[2022-04-18] MEDS: EMPAGLIFLOZIN 10 MG TABLET BY MOUTH (09:27)
[2022-04-18 11:18] VITALS: PULSE 102; O2SAT 93
[2022-04-18 11:55] LABS: Glucose Point of Care 146 mg/dl (65-105)
--- NOTE | 2022-04-18 14:00 | P.PNIM_ITS ---
Progress Note: A&P Assessment and Plan (1) Femoral neck fracture: Qualifiers: Encounter type: initial encounter Fracture type: closed Laterality: left Qualified Code(s): S72.002A - Fracture of unspecified part of neck of left femur, initial encounter for closed fracture Code(s): S72.009A - Fracture of unspecified part of neck of unspecified femur, initial encounter for closed fracture Status: Acute Assessment and Plan: Secondary to fall. Hip and pelvis x-ray showed displaced left femoral neck fracture * Vitamin-D 25-OH 44 * orthopedic surgery consulted and assisting with management. * s/p left total hip arthroplasty on 04/15/2022. * Continue Supportive care. * PO Analgesics available as needed * Continue PT/OT * Continue aspirin 325 mg q.12 for DVT prophylaxis per Orthopedic surgery * DVT prophylaxis with aspirin per Ortho * Plan for discharge to rehab, awaiting insurance authorization acute rehab versus SNF. (2) Elbow fracture: Qualifiers: Encounter type: initial encounter Laterality: left Fracture type: closed Qualified Code(s): S42.402A - Unspecified fracture of lower end of left humerus, initial encounter for closed fracture Code(s): S42.409A - Unspecified fracture of lower end of unspecified humerus, initial encounter for closed fracture Status: Acute Assessment and Plan: Secondary to fall. Elbow x-ray showed nondisplaced fracture of left lateral humeral condyle posteriorly * orthopedic surgery consulted and plan for conservative management * Continue hinged elbow brace per Orthopedic surgery. * LUE NWB * Analgesics and supportive care * PT/OT as above. Continue with platform walker (3) Fall: Qualifiers: Encounter type: initial encounter Qualified Code(s): W19.XXXA - Unspecified fall, initial encounter Code(s): W19.XXXA - Unspecified fall, initial encounter Status: Acute Assessment and Plan: Mechanical fall down stairs on 04/13. Reported on admission that someone called the patient's name and she turned around and missed a step. She did hit her head but no lose consciousness. No prolonged down time * Head CT showed no acute findings * Fall precautions in place * Continue management for left humerus and left femoral neck fractures as above. * TSH 1.99 * Awaiting insurance authorization for rehab. 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 A1c is 6.4. * Continue Accu-Cheks, sliding scale insulin, and hypoglycemic protocol * Home metformin on hold while inpatient. Resume at discharge. * Continue jardiance (5) Hyperlipidemia: Qualifiers: Hyperlipidemia type: mixed hyperlipidemia Qualified Code(s): E78.2 - Mixed hyperlipidemia Code(s): E78.5 - Hyperlipidemia, unspecified Status: Chronic Assessment and Plan: Chronic, stable. * LFTs within normal limits. * Continue atorvastatin Plan CODE STATUS: FULL CODE Disposition: acute versus SNF rehab. Patient is stable for discharge. Time Spent With Patient Time with patient: 15 - 25 minutes Subjective Date/time seen: 04/18/22 14:00 Patient sitting up in the chair. She denies
--- NOTE | 2022-04-18 14:00 | PM.IMPN ---
Progress Note: A&P Assessment and Plan (1) Femoral neck fracture: Qualifiers: Encounter type: initial encounter Fracture type: closed Laterality: left Qualified Code(s): S72.002A - Fracture of unspecified part of neck of left femur, initial encounter for closed fracture Code(s): S72.009A - Fracture of unspecified part of neck of unspecified femur, initial encounter for closed fracture Status: Acute Assessment and Plan: Secondary to fall. Hip and pelvis x-ray showed displaced left femoral neck fracture Vitamin-D 25-OH 44 orthopedic surgery consulted and assisting with management. s/p left total hip arthroplasty on 04/15/2022. Continue Supportive care. PO Analgesics available as needed Continue PT/OT Continue aspirin 325 mg q.12 for DVT prophylaxis per Orthopedic surgery DVT prophylaxis with aspirin per Ortho Plan for discharge to rehab, awaiting insurance authorization acute rehab versus SNF. (2) Elbow fracture: Qualifiers: Encounter type: initial encounter Laterality: left Fracture type: closed Qualified Code(s): S42.402A - Unspecified fracture of lower end of left humerus, initial encounter for closed fracture Code(s): S42.409A - Unspecified fracture of lower end of unspecified humerus, initial encounter for closed fracture Status: Acute Assessment and Plan: Secondary to fall. Elbow x-ray showed nondisplaced fracture of left lateral humeral condyle posteriorly orthopedic surgery consulted and plan for conservative management Continue hinged elbow brace per Orthopedic surgery. LUE NWB Analgesics and supportive care PT/OT as above. Continue with platform walker (3) Fall: Qualifiers: Encounter type: initial encounter Qualified Code(s): W19.XXXA - Unspecified fall, initial encounter Code(s): W19.XXXA - Unspecified fall, initial encounter Status: Acute Assessment and Plan: Mechanical fall down stairs on 04/13. Reported on admission that someone called the patient's name and she turned around and missed a step. She did hit her head but no lose consciousness. No prolonged down time Head CT showed no acute findings Fall precautions in place Continue management for left humerus and left femoral neck fractures as above. TSH 1.99 Awaiting insurance authorization for rehab. 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 A1c is 6.4. Continue Accu-Cheks, sliding scale insulin, and hypoglycemic protocol Home metformin on hold while inpatient. Resume at discharge. Continue jardiance (5) Hyperlipidemia: Qualifiers: Hyperlipidemia type: mixed hyperlipidemia Qualified Code(s): E78.2 - Mixed hyperlipidemia Code(s): E78.5 - Hyperlipidemia, unspecified Status: Chronic Assessment and Plan: Chronic, stable. LFTs within normal limits. Continue atorvastatin Plan CODE STATUS: FULL CODE Disposition: acute versus SNF rehab. Patient is stable for discharge. Time Spent With Patient Time with patient: 15 - 25 minutes Subjective Date/time seen: 04/18/22 14:00 Patient sitting up in the chair. She denies new complaints or overnight events. She reports some left hip pain, but does not like to take pain medication. No chest pain, SOB, cough, sputum, palpitations, abd pain, N/V/D, constipation, dysuria or parethesia. She is sleeping well. Review of Systems Review of Systems: All systems reviewed & are unremarkable except as noted in HPI and below Exam Narrative: General: Well-nourished older adult female, kassandra
[2022-04-18 16:56] LABS: Glucose Point of Care 163 mg/dl (65-105)
[2022-04-18] MEDS: HYDROcodone/acetaminophen (*CRX) 5-325 MG TABLET 1 TAB PO (21:08)
[2022-04-18] MEDS: ATORVASTATIN 10 MG TABLET PO (21:08)
[2022-04-18] MEDS: traZODone HCL 50 MG TABLET 150 MG BY MOUTH (21:09)
[2022-04-18 21:23] VITALS: BP 118/62; PULSE 102; RESP 20; TEMP 36.6; O2SAT 96
[2022-04-18 21:33] LABS: Glucose Point of Care 156 mg/dl (65-105)
[2022-04-19 05:30] VITALS: BP 123/61; PULSE 92; RESP 20; TEMP 36.5; O2SAT 96
[2022-04-19 07:47] LABS: Glucose Point of Care 129 mg/dl (65-105)
--- NOTE | 2022-04-19 08:37 | PCNWS ---
Weekly nutritional screen. Patient is tolerating current diet with adequate intake. No weight loss reported. No nutritional needs at this time.
[2022-04-19] MEDS: buPROPion HCL XL (24 HR) 150 MG TABCR PO (08:50)
[2022-04-19] MEDS: SENNA/DOCUSATE SODIUM TABLET 2 TAB PO (08:50)
[2022-04-19] MEDS: ASPIRIN 325 MG ENTERIC TABLET PO (08:50)
[2022-04-19] MEDS: CELECOXIB 200 MG CAPSULE PO (08:50)
[2022-04-19] MEDS: DULoxetine HCL 30 MG CAPSULE.DR PO (08:50)
[2022-04-19] MEDS: EMPAGLIFLOZIN 10 MG TABLET BY MOUTH (08:50)
[2022-04-19] MEDS: metFORMIN HCL 500 MG TABLET BY MOUTH (08:50)
[2022-04-19] MEDS: CALCIUM CARBONATE (OSCAL) 500 MG TABLET PO (08:51)
[2022-04-19] MEDS: HYDROcodone/acetaminophen (*CRX) 5-325 MG TABLET 1 TAB PO (11:28)
[2022-04-19 11:37] LABS: Glucose Point of Care 178 mg/dl (65-105)
--- NOTE | 2022-04-19 12:13 | PM.PNORT ---
Progress Note: A&P Assessment and Plan (1) Femoral neck fracture: Qualifiers: Encounter type: initial encounter Fracture type: closed Laterality: left Qualified Code(s): S72.002A - Fracture of unspecified part of neck of left femur, initial encounter for closed fracture Code(s): S72.009A - Fracture of unspecified part of neck of unspecified femur, initial encounter for closed fracture Status: Acute Assessment and Plan: POD #4 : Left AMAYA Continue PT/OT. WBAT. Walker. HIGH FALL RISK. Continue pain control. Ice Hip. Protect skin. DVT prophylaxis with Aspirin. SCDs. Incentive Spirometry Use reviewed. Monitor Dressing. Change prior to discharge. Bowel Regimen. Dispo: SNF vs [facility] pending progress with PT/OT (2) Elbow fracture: Qualifiers: Encounter type: initial encounter Fracture type: closed Laterality: left Qualified Code(s): S42.402A - Unspecified fracture of lower end of left humerus, initial encounter for closed fracture Code(s): S42.409A - Unspecified fracture of lower end of unspecified humerus, initial encounter for closed fracture Status: Acute Assessment and Plan: NWHaleigh LEE. Sling. Hinged Elbow Brace in place. Okay to use platform walker. Subjective Subjective Date/Time Seen: 04/19/22 12:13 Post Op day: 4 Principal diagnosis: Left AMAYA s/p Fracture & Elbow Fx Interval history: Patient doing well. Working well with PT/OT. No new concerns. Review of Systems Review of Systems: All systems reviewed & are unremarkable except as noted in HPI and below (HPI ) Exam Const: General: comfortable and no acute distress Orientation/consciousness: patient oriented x3 Limitations: no limitations Resp: Effort & Inspection: normal respiratory effort Cardio: Rate: regular rate Rhythm: regular rhythm GI: Inspection: non-distended Skin: General skin exam: normal color and wounds noted (incision left hip C/D/I ) Wounds: wounds noted (incision left hip C/D/I ) Neuro: General: patient oriented x3 Extrem: Left upper extremity: elbow/forearm tenderness (entire elbow ) and swelling (elbow ), wrist normal to inspection and radial pulse present 2+ and hand neurosensory exam normal Details: radial nerve sensory function normal, ulnar nerve sensory function normal, median nerve sensory function normal and digital nerve sensory function normal, normal ROM of fingers and no swelling; no tenderness, no unusual warmth, no swelling, no ecchymosis and no crepitus Left lower extremity: hip/thigh Details: tenderness Location: of the hip Location: laterally and anteriorly, swelling (thigh soft ) Location: of the hip (lateral. ), abnormal ROM (limitations with internal/external rotation and flexion/extension due to recent surgical intervention ) and other (incision lateral hip c/d/i. ), knee Details: normal to inspection and normal ROM; no tenderness and no swelling, lower leg (Negative Samantha's Sign ) Details: no edema, ankle (+ankle dorsiflexion/plantarflexion ) Details: normal to inspection, no edema and normal ROM; no tenderness, no swelling and no warmth and foot Details: normal capillary refill, toes with normal ROM, vascular exam Details: dorsalis pedis pulse present and motor-sensory exam light-touch normal in all toes; no tenderness, no ecchymosis and no crepitus Psych: Mental Status: mental status grossly normal Affect: normal affect Objective Data Vital Signs Vital Signs: Vital Signs - 24 hr 04/18/22 21:23 04/19/22 05:30 04/19/22 08:00 Temperature 36.6 C 36.5 C Pulse Rate 102 H 92 Respiratory Rate 20 20 Blood Pressure 118/62 123/61 Pulse Oximetry 96 96 Oxygen Delivery Room Air Intake/Output Intake/Output: Intake & Output 04/16/22 04/17/22 04/18/22 04/19/22 23:59 23:59 23:59 23:59 Intake Total 2620 1460 2019 490 Output Total 1050 2 Balance 1570 1458 2019 490 Meds/Results Medications: Active Medications Generic Name Dose Route S
--- NOTE | 2022-04-19 12:33 | PM.DS ---
DS: Admitting Diagnosis Discharge Date 04/19/2022 1233 Admitting Diagnosis (1) Femoral neck fracture (2) Elbow fracture (3) mechanical fall DS: Discharge Diagnosis Discharge Diagnosis (1) Femoral neck fracture: Qualifiers: Encounter type: initial encounter Fracture type: closed Laterality: left Qualified Code(s): S72.002A - Fracture of unspecified part of neck of left femur, initial encounter for closed fracture Code(s): S72.009A - Fracture of unspecified part of neck of unspecified femur, initial encounter for closed fracture Status: Acute (2) Elbow fracture: Qualifiers: Encounter type: initial encounter Fracture type: closed Laterality: left Qualified Code(s): S42.402A - Unspecified fracture of lower end of left humerus, initial encounter for closed fracture Code(s): S42.409A - Unspecified fracture of lower end of unspecified humerus, initial encounter for closed fracture Status: Acute (3) Fall: Qualifiers: Encounter type: initial encounter Qualified Code(s): W19.XXXA - Unspecified fall, initial encounter Code(s): W19.XXXA - Unspecified fall, initial encounter Status: Acute (4) Diabetes: Qualifiers: Diabetes mellitus complication status: without complication 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 Diabetes mellitus type: type 2 Qualified Code(s): E11.9 - Type 2 diabetes mellitus without complications Code(s): E11.9 - Type 2 diabetes mellitus without complications Status: Chronic (5) Hyperlipidemia: Qualifiers: Hyperlipidemia type: mixed hyperlipidemia Qualified Code(s): E78.2 - Mixed hyperlipidemia Code(s): E78.5 - Hyperlipidemia, unspecified Status: Chronic DS: Summary Hospital Course Reason for hospitalization: Fall Hospital Course: Deisy Roe is a 72-year-old female patient with type 2 diabetes mellitus, hyperlipidemia, IBS, depression and anxiety, who presented to the ED following a mechanical fall. She was walking down the steps [place] [employer] when she missed a step and fell onto her left side.?She reported getting to the last step, when somebody called her name, she turned to look and then she missed the last step and fell.? She landed on her left hip and had sudden onset of pain.? She was unable to stand up or walk.? She stated she did strike her head but did not lose consciousness.? She is not on any anticoagulants.? Her COVID test is negative.? Chest x-ray showed no acute cardiopulmonary disease.? X-rays showed displaced left femoral neck fracture and nondisplaced fracture of lateral humeral condyle posteriorly.? The left arm was placed in a sling.? Ortho was consulted in the ED.? The patient was given morphine and IV fluids in the emergency room.? She was admitted to the medical floor for Orthopedic evaluation and pain management. Femoral neck fracture The patient presented to the ED following a mechanical fall described above. Hip and pelvis x-ray showed displaced left femoral neck fracture. Orthopedics was consulted. The patient underwent left total hip arthroplasty with Dr. Otero on 04/15/22. Her EBL was 350 mL and surgery was uncomplicated. She completed postop antibiotics per Orthopedic order. Pain was treated with IV morphine, acetaminophen 650 mg PRN, oral Rew 5/325 mg PRN, and scheduled celebrex 200 mg PO daily. Vitamin-D 25-OH 44 and A1c was 6.4%. She received aspirin 325 mg PO BID x28 days for DVT prophylaxis. PT/OT was consulted and SNF was recommended. She was discharged to rehab and will have follow up with Dr. Otero on 05/07/22 as scheduled. She is WBAT left lower extremity with walker as instructed by Orthopedics. She would benefit from DEXA scan for evaluation of osteoporosis if not already obtained in the past 2 years. Elbow fracture The patient sustained a mechanical fall. Imaging showed nondisplaced fracture of left lateral humeral condyle poste
[2022-04-19 15:27] LABS: EDCOVIDSCREEN Negative (Negative)
== END 2022-04-19 15:45 | DRG 522 ==
LOC: ANHED 12:32 → ANH3MEDSUR 18:01
PROVIDERS: Nurse Practitioner; Orthopaedic Surgery; Physician Assistant; Admitting Provider Student in an Organized Health Care Education/Training Program; Emergency Provider Emergency Medicine; Visit Provider Nurse Practitioner Family
PROC: 0SRB04A Replacement of Left Hip Joint with Ceramic on Polyethylene Synthetic Substitute, Uncemented, Open Approach (ICD-10-PCS; CPT 27130; principal; 2022-04-15 10:00)
DX: S72.002A Fracture of unspecified part of neck of left femur, initial encounter for closed fracture (principal); S42.455A Nondisplaced fracture of lateral condyle of left humerus, initial encounter for closed fracture; S09.90XA Unspecified injury of head, initial encounter; W10.8XXA Fall (on) (from) other stairs and steps, initial encounter; E11.36 Type 2 diabetes mellitus with diabetic cataract; K75.81 Nonalcoholic steatohepatitis (NASH); E80.6 Other disorders of bilirubin metabolism; K58.9 Irritable bowel syndrome, unspecified; E78.5 Hyperlipidemia, unspecified; F41.8 Other specified anxiety disorders; H26.9 Unspecified cataract; Z20.822 Contact with and (suspected) exposure to COVID-19; Z79.85 Long-term (current) use of injectable non-insulin antidiabetic drugs; Z79.84 Long term (current) use of oral hypoglycemic drugs; Z90.49 Acquired absence of other specified parts of digestive tract; Z90.710 Acquired absence of both cervix and uterus
CPT/HCPCS: 36415; 70450; 71045; 73080; 73501; 73502; 80048; 80053; 80076; 81001; 82306; 82948; 83036; 83605; 83735; 84443; 85025; 85027; 85610; 85730; 86850; 86900; 86901; 87426; 93005; 96361; 96374; 97110; 97116; 97162; 97166; 97530; 97535; 99285; A4565; A9270; C1713; C1776; C9803; J0171; J0690; J1815; J1885; J2270; J2405; J2704; J2710; J2795; J3010; J7030; J7120; U0003; U0005